=== PATIENT | male | born 1985 | race Caucasian/White ===

== ENCOUNTER 2020-07-24 15:21 | Emergency (ER) | payer OTHER ==
[~2020-07-24] VITALS: Ht 188 cm; Wt 97.5 kg
[2020-07-24] MEDS ORDERED: ALLEGRA ALLERG180 MG PO (15:33)
== END 2020-07-24 17:38 | disposition home or self-care (01) ==
LOC: ED 15:21
DX: S01.81XA Laceration without foreign body of other part of head, initial encounter (principal); W55.12XA Struck by horse, initial encounter; Z79.899 Other long term (current) drug therapy
CPT/HCPCS: 12014; 70450; 99283-25

== ENCOUNTER 2024-01-28 10:26 | Emergency (ER) | payer BC, OTHER ==
[~2024-01-28] VITALS: Ht 188 cm; Wt 95.0 kg
[~2024-01-28 10:26] MED LIST: ALLEGRA ALLERG180 MG PO
[2024-01-28] MEDS ORDERED: CEPHALEXIN250 MG PO (10:38)
[2024-01-28 11:30] VITALS: BP 128/83
== END 2024-01-28 11:28 | disposition home or self-care (01) ==
LOC: ED 10:26
DX: L02.511 Cutaneous abscess of right hand (principal); Z79.899 Other long term (current) drug therapy
CPT/HCPCS: 10060; 99282-25